=== PATIENT | male | born 1930 | race Caucasian/White ===

== ENCOUNTER 2017-03-13 12:20 | Emergency (ER) | payer MEDICARE, BC ==
[~2017-03-13] VITALS: Ht 172.7 cm; Wt 59.0 kg
[2017-03-13] MEDS ORDERED: LEXAPRO10 MG ORAL (12:52)
[2017-03-13] MEDS ORDERED: LIPITOR80 MG ORAL (12:52)
[2017-03-13] MEDS ORDERED: ZANTAC150 MG ORAL (12:52)
[2017-03-13] MEDS ORDERED: COENZYME Q101 EA ORAL (12:52)
[2017-03-13] MEDS ORDERED: NAMENDA10 MG ORAL (12:52)
[2017-03-13] MEDS ORDERED: DONEPEZIL HCL10 M2 ORAL (12:52)
[2017-03-13] MEDS ORDERED: PRESERVISION A1 EAC2 PO (12:53)
[2017-03-13] MEDS ORDERED: MULTIVITAMINS1 EAC2 ORAL (12:53)
[2017-03-13] MEDS ORDERED: D3 DOTS2000 UNI1 PO (12:53)
[2017-03-13] MEDS ORDERED: B-100 COMPLEX100 MG PO (12:53)
[2017-03-13 12:55] VITALS: BP 117/78
[2017-03-13 12:58] LABS: BASOPHILS % (AUTO) 0.7 % (0.0-2.0); EOSINOPHILS % (AUTO) 0.4 % (0.0-3.0); LYMPHOCYTES % (AUTO) 13.9 % (20.0-45.0); MEAN CORPUSCULAR HGB CONC 33.2 G/DL (32.0-36.0); MEAN CORPUSCULAR VOLUME 105 FL (80-99); MEAN PLATELET VOLUME 10.3 FL (6.5-10.1); MONOCYTES % (AUTO) 10.7 % (1.0-10.0); NEUTROPHILS % (AUTO) 74.2 % (45.0-75.0); PLATELET COUNT 177 K/UL (150-450); RED BLOOD COUNT 4.27 M/UL (4.70-6.10); RED CELL DISTRIBUTION WIDTH 11.2 % (11.6-14.8); WHITE BLOOD COUNT 11.5 K/UL (4.8-10.8)
[2017-03-13 13:05] LABS: ANION GAP 7 mmol/L (5-15); CALCIUM 9.8 MG/DL (8.5-10.1); CARBON DIOXIDE 30 MMOL/L (21-32); CHLORIDE 103 MMOL/L (98-107); CREATININE 1.3 MG/DL (0.55-1.30); POTASSIUM 4.3 MMOL/L (3.5-5.1); SODIUM 139 MMOL/L (136-145)
--- NOTE | 2017-03-13 13:12 | Emergency Room Report ---
History of Present Illness General Chief Complaint: Altered Level of Consciousness Source: Family Member Present Illness HPI 86-year-old male presents ED for evaluation. Daughter at bedside states that patient has been more altered than usual this morning. Last seen well last night. Patient was found this morning sleeping in his urine. Patient appeared confused and unsteady gait. States that here patient appears more alert and oriented. Patient does have dementia but does not believe patient is at his baseline. No fevers or chills. No chest pain or shortness of breath. There is remote history of alcohol use but patient denies any alcohol use at this time. Denies drug use. No other aggravating relieving factors. Denies any other associated symptoms Allergies: Coded Allergies: No Known Allergies (Unverified , 03/13/17) Patient History Past Medical History: dementia Past Surgical History: none Pertinent Family History: none Social History: Denies: smoking, alcohol use, drug use Immunizations: UTD Reviewed Nursing Documentation: PMH: Agreed, PSxH: Agreed Review of Systems All Other Systems: negative except mentioned in HPI Physical Exam Vital Signs Date Time Temp Pulse Resp B/P (MAP) Pulse Ox O2 Delivery O2 Flow Rate FiO2 03/13/17 12:33 97.3 77 10 126/61 97 Room Air Sp02 EP Interpretation: reviewed, normal General Appearance: no apparent distress, alert, GCS 15, non-toxic Head: normocephalic, atraumatic Eyes: bilateral eye normal inspection, bilateral eye PERRL ENT: hearing grossly normal, normal pharynx, no angioedema, normal voice Neck: full range of motion, supple/symm/no masses Respiratory: chest non-tender, lungs clear, normal breath sounds, speaking full sentences Cardiovascular #1: regular rate, rhythm, no edema Cardiovascular #2: 2+ carotid (R), 2+ carotid (L), 2+ radial (R), 2+ radial (L) , 2+ dorsalis pedis (R), 2+ dorsalis pedis (L) Gastrointestinal: normal bowel sounds, non tender, soft, non-distended, no guarding, no rebound Rectal: deferred Genitourinary: normal inspection, no CVA tenderness Musculoskeletal: back normal, gait/station normal, normal range of motion, non- tender Neurologic: alert, responsive, motor strength/tone normal, sensory intact, speech normal Psychiatric: mood/affect normal, no suicidal/homicidal ideation Reflexes: 3+ bicep (R), 3+ bicep (L), 3+ tricep (R), 3+ tricep (L), 3+ knee (R) , 3+ knee (L) Skin: normal color, no rash, warm/dry, well hydrated Lymphatic: no adenopathy Medical Decision Making Diagnostic Impression: Primary Impression: Altered level of consciousness ER Course Hospital Course 86-year-old male presents to ED with increased confusion this morning, unsteady gait Differential diagnoses include: arrythmia, dehydration, intracranial bleed, seizure Clinical course Patient placed on stretcher. on surveillance system monitor. After initial history and physical I ordered labs, EKG, chest Xray, IVFs, CT Brain labs reviewed- minimal leukocytosis, Hb/Hct stable, electrolytes ok, troponins negative, ammonia ok, UA negative CT Brain - unremarkable Chest x-ray- no acute process EKG - NSR, no acute ischemic changes interpreted by me During ED course, patient appears at his baseline mentation. Discussed findings with PMD Dr. Reyes; in cooperation with patient's family we agreed that patient can be discharged home at this time pending close outpatient followup I. I feel this is a highly complex case requiring extensive working including EKG/Rhythm strip, Xray/CT/US, Blood/urine lab work, repeat exams while in ED, and administration of strong opiates/narcotics for pain control, admission to hospital or close patient follow up. Diagnosis - ALOC Stable and discharged to home. Followup with PMD. Return to ED if symptoms recur or worsen Labs Test 03/13/17 12:44 03/13/17 13:09 White Blood Count 11.5 K/UL (4.8-10.8) Red Blood Count 4.27 M/UL (4.70-6.10) Hemoglobin 14.9 G/DL (14.2-18.0) Hematocrit 45.0 % (42.0-52.0) Mean Corpuscular Volume 105 FL (80-99) Mean Corpuscular Hemoglobin 35.0 PG (27.0-31.0) Mean Corpuscular Hemoglobin Concent 33.2 G/DL (32.0-36.0) Red Cell Distribution Width 11.2 % (11.6-14.8) Platelet Count 177 K/UL (150-450) Mean Platelet Volume 10.3 FL (6.5-10.1) Neutrophils (%) (Auto) 74.2 % (45.0-75.0) Lymphocytes (%) (Auto) 13.9 % (20.0-45.0) Monocytes (%) (Auto) 10.7 % (1.0-10.0) Eosinophils (%) (Auto) 0.4 % (0.0-3.0) Basophils (%) (Auto) 0.7 % (0.0-2.0) Sodium Level 139 MMOL/L (136-145) Potassium Level 4.3 MMOL/L (3.5-5.1) Chloride Level 103 MMOL/L (98-107) Carbon Dioxide Level 30 MMOL/L (21-32) Anion Gap 7 mmol/L (5-15) Blood Urea Nitrogen 15 mg/dL (7-18) Creatinine 1.3 MG/DL (0.55-1.30) Estimat Glomerular Filtration Rate mL/min (>60) Glucose Level 155 MG/DL (74-106) Calcium Level 9.8 MG/DL (8.5-10.1) Total Bilirubin 1.4 MG/DL (0.2-1.0) Direct Bilirubin 0.3 MG/DL (0.0-0.3) Aspartate Amino Transf (AST/SGOT) 23 U/L (15-37) Alanine Aminotransferase (ALT/SGPT) 26 U/L (12-78) Alkaline Phosphatase 70 U/L (46-116) Ammonia 8 umol/L (11-32) Total Creatine Kinase 84 U/L (26-308) Creatine Kinase MB 2.5 NG/ML (0.0-3.6) Creatine Kinase MB Relative Index 2.9 Troponin I 0.000 ng/mL (0.000-0.056) Total Protein 8.2 G/DL (6.4-8.2) Albumin 4.0 G/DL (3.4-5.0) Globulin 4.2 g/dL Albumin/Globulin Ratio 1.0 (1.0-2.7) Salicylates Level < 0.2 ug/mL (2.8-20) Acetaminophen Level < 2 MCG/ML (10-30) Serum Alcohol < 3 mg/dL Urine Color Brown Urine Appearance Clear Urine pH 7 (4.5-8.0) Urine Specific [place] 1.015 (1.005-1.035) Urine Protein Negative (NEGATIVE) Urine Glucose (UA) Negative (NEGATIVE) Urine Ketones Negative (NEGATIVE) Urine Occult Blood 1+ (NEGATIVE) Urine Nitrite Negative (NEGATIVE) Urine Bilirubin Negative (NEGATIVE) Urine Urobilinogen Normal MG/DL (0.0-1.0) Urine Leukocyte Esterase 1+ (NEGATIVE) Urine RBC 0-2 /HPF (0 - 0) Urine WBC 0-2 /HPF (0 - 0) Urine Squamous Epithelial Cells Occasional /LPF Urine Amorphous Sediment Few /LPF (NONE) Urine Bacteria Occasional /HPF (NONE) Urine Opiates Screen Negative (NEGATIVE) Urine Barbiturates Screen Negative (NEGATIVE) Phencyclidine (PCP) Screen Negative (NEGATIVE) Urine Amphetamines Screen Negative (NEGATIVE) Urine Benzodiazepines Screen Negative (NEGATIVE) Urine Cocaine Screen Negative (NEGATIVE) Urine Marijuana (THC) Screen Negative (NEGATIVE) EKG Diagnostic Results Rate: normal Rhythm: NSR ST Segments: no acute changes ASA given to the pt in ED: No Rhythm Strip Diag. Results EP Interpretation: yes Rhythm: NSR, no PVC's, no ectopy Chest X-Ray Diagnostic Results Chest X-Ray Diagnostic Results : Chest X-Ray Ordered: Yes # of Views/Limited/Complete: 1 View Indication: Other - ams Other X-Ray Diagnostic Results Other X-Ray Diagnostic Results : X-Ray ordered: R foot # of Views/Limited Vs Complete: 3 View Indication: Pain EP Interpretation: Yes Interpretation: no dislocation, no soft tissue swelling, no fractures Impression: No acute disease Electronically Signed by: Electronically signed by Alistair Brown MD CT/MRI/US Diagnostic Results CT/MRI/US Diagnostic Results : Imaging Test Ordered: CT head Impression no acute process. chronic age related changes Last Vital Signs Date Time Temp Pulse Resp B/P (MAP) Pulse Ox O2 Delivery O2 Flow Rate FiO2 03/13/17 12:33 97.3 77 10 126/61 97 Room Air Status: improved Disposition: HOME, SELF-CARE Condition: Stable ALISTAIR BROWN M.D. Mar 13, 2017 13:12
[2017-03-13 13:19] LABS: ALANINE AMINOTRANSFERASE 26 U/L (12-78); ASPARTATE AMINO TRANSFERASE 23 U/L (15-37); CKMB 2.5 NG/ML (0.0-3.6); TOTAL PROTEIN 8.2 G/DL (6.4-8.2)
[2017-03-13 13:22] LABS: BILIRUBIN,DIRECT 0.3 MG/DL (0.0-0.3)
[2017-03-13 13:23] LABS: ACETAMINOPHEN < 2 MCG/ML (10-30); ALCOHOL < 3 mg/dL
[2017-03-13 13:29] LABS: APPEARANCE,URINE CLEAR; KETONES,URINE NEGATIVE (NEGATIVE); LEUKOCYTE ESTERASE ,URINE 1+ (NEGATIVE); NITRITE,URINE NEGATIVE (NEGATIVE); PH,URINE 7 (4.5-8.0); PROTEIN,URINE NEGATIVE (NEGATIVE); UROBILINOGEN,URINE NORMAL MG/DL (0.0-1.0)
[2017-03-13 13:38] LABS: AMMONIA 8 umol/L (11-32)
[2017-03-13 13:43] LABS: AMORPHOUS SEDIMENT,UR FEW /LPF; BACTERIA,URINE OCCASIONAL /HPF; RBC,URINE 0-2 /HPF (0 - 0); SQUAMOUS EPITHELIAL CELL,UR OCCASIONAL /LPF (NONE/OCC); WBC,URINE 0-2 /HPF (0 - 0)
--- NOTE | 2017-03-13 14:01 | Diagnostic Imaging Report ---
Indication: Altered mental status Technique: Spiral acquisitions obtained through the abdomen and pelvis. No oral or IV contrast utilized, per urinary stone protocol. Multiplanar reconstructions were generated. Total dose length product 1368 mGycm. CTDIvol(s) 70 mGy. Dose reduction achieved using automated exposure control Comparison: No comparison CTs. Reference is made to MRI of the brain dated 12/05/2011 Findings: There is age-related enlargement of ventricles and extra-axial CSF spaces. Ventriculomegaly appears similar to the previous study. However, the sulci near the vertex appear equivocally somewhat effaced as compared to what was demonstrated previously. There is low-attenuation of the periventricular deep white matter, consistent with chronic ischemic change. There is an area of encephalomalacia in the high right parietal lobe which is also evident on the prior MRI. There is an area of encephalomalacia in the right frontal lobe which is likewise also evident on the previous MRI No acute intracranial hemorrhage or edema. No mass effect or midline shift. . The calvarium is intact. There is right sphenoid sinus opacification. The mastoids are clear. The included orbits are unremarkable. Impression: Evidence of chronic cerebral volume loss, also demonstrated on prior study of 12/05/2011. Note, however, that there is relative effacement of the sulci near the vertex which is not clearly evident previously. This raises possibility that there could be a component of hydrocephalus as well. 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 Chronic periventricular the white matter ischemic changes, also previously reported Negative for acute intracranial bleed or mass effect The CT scanner at [facility] is accredited by the [employer] and the scans are performed using protocols designed to limit radiation exposure to as low as reasonably achievable to attain images of sufficient resolution adequate for diagnostic evaluation.
--- NOTE | 2017-03-13 14:03 | Diagnostic Imaging Report ---
Indication: PAIN, black and blue fourth toe Technique: 3 views right foot Comparison: none Findings: The bones are osteoporotic. There is severe hallux valgus, mild metatarsus adductus. There is hammertoe deformity of the second through fifth digits. No definite osseous erosions or other findings to suggest acute osteomyelitis. Joint spaces are preserved. No acute fractures or dislocations. Impression: No definite acute bony trauma No definite findings to suggest acute osteomyelitis. Note, however, limited sensitivity of plain radiographs for such. Consider MRI or bone scan if there is high clinical suspicion Deformities as described
--- NOTE | 2017-03-13 14:04 | Diagnostic Imaging Report ---
Indication: Altered metal status and cough Technique: One view of the chest Comparison: none Findings: Inspiration is suboptimal. The lungs and pleural spaces are clear. Heart size is normal. There is no significant interim change Impression: No acute process
[2017-03-13 14:45] VITALS: BP 113/82
--- NOTE | 2017-03-14 11:27 | Cardiology Report ---
APPROVED REPORT EKG Measurement Heart [id number] Sinus rhythm with premature atrial complexes in a pattern of bigeminy Minimal voltage criteria for LVH, may be normal variant Borderline ECG
== END 2017-03-13 14:40 | disposition home or self-care (01) ==
LOC: EMR 13:40
DX: R41.82 Altered mental status, unspecified (principal); F03.90 Unspecified dementia, unspecified severity, without behavioral disturbance, psychotic disturbance, mood disturbance, and anxiety
CPT/HCPCS: 36415; 70450; 71010; 73630; 80053; 80307; 81003; 82140; 82248; 82550; 82553; 82962; 84484; 85025; 86710; 93005; 99284; G0480; 80329

== ENCOUNTER 2018-04-28 17:19 | Emergency (ER) | payer MEDICARE, BC, OTHER ==
[~2018-04-28] VITALS: Ht 172.7 cm; Wt 66.2 kg
[~2018-04-28 17:19] MED LIST: B-100 COMPLEX100 MG PO; COENZYME Q101 EA ORAL; D3 DOTS2000 UNI1 PO; DONEPEZIL HCL10 M2 ORAL; LEXAPRO10 MG ORAL; LIPITOR80 MG ORAL; MULTIVITAMINS1 EAC2 ORAL; NAMENDA10 MG ORAL; PRESERVISION A1 EAC2 PO; ZANTAC150 MG ORAL
--- NOTE | 2018-04-28 17:30 | NUR ---
ED Nurse Note: PT WAS AT PMD FOR B12 INJECTION WHEN BP WAS 85/50. REFERR[address] DR. LIGHT beside vitals were withing normal limits
[2018-04-28 17:32] VITALS: BP 125/61
[2018-04-28] MEDS ORDERED: ELIQUIS5 MG PO (17:52)
--- NOTE | 2018-04-28 18:39 | Emergency Room Report ---
History of Present Illness General Chief Complaint: General Complaint Source: Patient, Family Member Present Illness HPI 87-year-old male sent in by Dr. Mendez Reyes for an episode of hypotension that occurred after patient received a vitamin B12 injection. Allergies: Coded Allergies: No Known Allergies (Unverified , 04/28/18) Patient History Past Medical History: see triage record Reviewed Nursing Documentation: PMH: Agreed; PSxH: Agreed Nursing Documentation-PMH Past Medical History: No History, Except For Hx Cerebrovascular Accident: Yes - 2018 Review of Systems All Other Systems: negative except mentioned in HPI Physical Exam Vital Signs Date Time Temp Pulse Resp B/P (MAP) Pulse Ox O2 Delivery O2 Flow Rate FiO2 04/28/18 17:22 98.1 65 14 125/61 97 Room Air Sp02 EP Interpretation: reviewed, normal General Appearance: no apparent distress, alert, non-toxic Head: normocephalic Eyes: bilateral eye normal inspection, bilateral eye PERRL, bilateral eye EOMI ENT: normal ENT inspection, hearing grossly normal, normal pharynx, no angioedema, normal voice, moist mucus membranes Neck: normal inspection, full range of motion, supple, supple/symm/no masses Respiratory: chest non-tender, lungs clear, normal breath sounds, chest symmetrical, palpation of chest normal Cardiovascular #1: normal peripheral pulses, regular rate, rhythm Cardiovascular #2: 2+ radial (R), 2+ radial (L) Gastrointestinal: normal inspection, non tender, soft, no mass, no guarding, no rebound Rectal: deferred Genitourinary: normal inspection, no CVA tenderness Musculoskeletal: back normal, gait/station normal, normal range of motion, non- tender, no calf tenderness Neurologic: alert, responsive, crystal slicer III-XII nml as tested, motor strength/tone normal - mild RUE HP, sensory intact, speech normal Psychiatric: judgement/insight normal, mood/affect normal Skin: normal color, no rash, warm/dry, normal turgor Lymphatic: no adenopathy Medical Decision Making Diagnostic Impression: Primary Impression: Low BP ER Course Patient with an episode of asymptomatic hypotension. He is on eliquis for afib and had a cva with mild R HP. Family reports generalized weight loss and occasional diarrhea over the past few weeks. Patient has no symptoms at all, also denies any urinary problems, fevers, cough , pain complaints, syncope, near-syncope, and family thinks that the nurse in the doctor's office should've recheck a blood pressure because the only checked once and said it was low. All of his blood pressures have been normal, he has a normal WBC count, I will send patient home for outpatient workup with yarn examiner skeins Dr. Mendez Reyes. EKG Diagnostic Results EKG Time: 17:39 EP Interpretation: no stemi Rate: normal Rhythm: NSR ST Segments: no acute changes ASA given to the pt in ED: Yes Rhythm Strip Diag. Results Rhythm Strip Time: 18:25 EP Interpretation: yes Rate: 68 Rhythm: NSR, no PVC's, no ectopy Chest X-Ray Diagnostic Results Chest X-Ray Diagnostic Results : Chest X-Ray Ordered: Yes # of Views/Limited/Complete: 1 View Indication: Other - low bp EP Interpretation: Yes Interpretation: no consolidation, no effusion, no pneumothorax, no acute cardiopulmonary disease Impression: No acute disease Electronically Signed by: Mariola Georges MD Last Vital Signs Date Time Temp Pulse Resp B/P (MAP) Pulse Ox O2 Delivery O2 Flow Rate FiO2 04/28/18 17:22 98.1 65 14 125/61 97 Room Air Disposition: HOME, SELF-CARE MARIOLA GEORGES M.D Apr 28, 2018 18:39
[2018-04-28 18:45] LABS: ANION GAP 9 mmol/L (5-15); BLOOD UREA NITROGEN 13 mg/dL (7-18); CALCIUM 9.8 MG/DL (8.5-10.1); CARBON DIOXIDE 27 MMOL/L (21-32); CHLORIDE 104 MMOL/L (98-107); CREATININE 1.1 MG/DL (0.55-1.30); POTASSIUM 3.9 MMOL/L (3.5-5.1); SODIUM 140 MMOL/L (136-145)
[2018-04-28 18:48] LABS: BASOPHILS % (AUTO) 0.9 % (0.0-2.0); EOSINOPHILS % (AUTO) 2.3 % (0.0-3.0); HEMATOCRIT 34.5 % (42.0-52.0); HEMOGLOBIN 11.2 G/DL (14.2-18.0); LYMPHOCYTES % (AUTO) 28.8 % (20.0-45.0); MEAN CORPUSCULAR VOLUME 103 FL (80-99); MONOCYTES % (AUTO) 10.9 % (1.0-10.0); PLATELET COUNT 184 K/UL (150-450); RED BLOOD COUNT 3.37 M/UL (4.70-6.10); RED CELL DISTRIBUTION WIDTH 10.9 % (11.6-14.8); WHITE BLOOD COUNT 7.8 K/UL (4.8-10.8)
[2018-04-28 18:50] LABS: ALANINE AMINOTRANSFERASE 34 U/L (12-78); ALBUMIN 3.4 G/DL (3.4-5.0); ALBUMIN/GLOBULIN RATIO 0.8 (1.0-2.7); ALKALINE PHOSPHATASE 95 U/L (46-116); ASPARTATE AMINO TRANSFERASE 26 U/L (15-37); BILIRUBIN,TOTAL 0.3 MG/DL (0.2-1.0)
[2018-04-28 19:06] VITALS: BP 124/59
--- NOTE | 2018-04-28 19:08 | NUR ---
ED Nurse Note: pt was d/c per ermd, discharge instructions and prescription explained and pt is aox 4 and able to verbalize understanding. id band removed. IV site discontinued without complications. pt able to walk with steady gait. pt left the ed with all belongings. pt with daughter
--- NOTE | 2018-04-29 11:25 | Diagnostic Imaging Report ---
Indication: Cough Technique: One view of the chest Comparison: 03/13/2017 Findings: No acute infiltrates, effusions, or congestion. Tortuous calcified aorta. Normal heart size. Upper mediastinum unremarkable. Suboptimal inspiration. No significant interim change Impression: No acute process.
--- NOTE | 2018-04-29 18:35 | Cardiology Report ---
APPROVED REPORT EKG Measurement Heart [id number] Normal sinus rhythm with sinus arrhythmia Normal ECG
== END 2018-04-28 19:20 | disposition home or self-care (01) ==
LOC: EMR 19:20
DX: I95.9 Hypotension, unspecified (principal); I48.91 Unspecified atrial fibrillation; Z79.02 Long term (current) use of antithrombotics/antiplatelets; Z86.73 Personal history of transient ischemic attack (TIA), and cerebral infarction without residual deficits
CPT/HCPCS: 36415; 71045; 80053; 84484; 85025; 93005; 99283